=== PATIENT | female | born 1955 | race African-American/Black ===

== ENCOUNTER 2025-06-03 17:25 | Emergency (ER) | payer OTHER, MEDICARE ==
[~2025-06-03] VITALS: Ht 162.6 cm; Wt 74.0 kg
[2025-06-03 17:47] VITALS: O2SAT 98
[2025-06-03] MEDS ORDERED: LIDO-53 TP (22:07)
[2025-06-03] MEDS ORDERED: IBUP-1455 MT (22:07)
[2025-06-03 22:32] VITALS: BP 124/66; PULSE 60; RESP 18; TEMP 36.6; O2SAT 98
== END 2025-06-03 22:33 | disposition home or self-care (01) ==
LOC: ER 17:25
DX: S80.12XA Contusion of left lower leg, initial encounter (principal); M25.511 Pain in right shoulder; Z85.42 Personal history of malignant neoplasm of other parts of uterus; Z88.8 Allergy status to other drugs, medicaments and biological substances; Z88.2 Allergy status to sulfonamides; Z88.1 Allergy status to other antibiotic agents; Z88.0 Allergy status to penicillin; V89.2XXA Person injured in unspecified motor-vehicle accident, traffic, initial encounter; Y93.89 Activity, other specified; Y92.410 Unspecified street and highway as the place of occurrence of the external cause; Y99.8 Other external cause status
CPT/HCPCS: 73030; 73590; 99284